=== PATIENT | female | born 2000 | race Caucasian/White ===

== ENCOUNTER 2024-05-05 10:00 | Outpatient (CLI) | payer OTHER ==
[2024-05-05 10:55] VITALS: BP 99/64
[2024-05-05] MEDS ORDERED: ATABEX DHA 200200 MG PO (11:43)
[2024-05-05] MEDS ORDERED: PEPCID AC20 MG PO (11:43)
[2024-05-05 13:20] LABS: URINE APPEARANCE Clear; URINE BILIRRUBIN Negative (NEGATIVE); URINE BLOOD Negative; URINE COLOR Yellow; URINE GLUCOSE Negative (NEGATIVE); URINE KETONE Negative (NEGATIVE); URINE LEUKOCYTE Small; URINE NITRATE Negative; URINE PROTEIN Negative (NEGATIVE); URINE UROBILINOGEN 0.2 E.U./dl
[2024-05-05 13:22] LABS: URINE BACTERIA 609.8 uL (0.0-1933); URINE RBC 2.4 uL (0.0-20.8); URINE WBC 18.7 uL (0.0-23.2)
[2024-05-05 13:24] LABS: URINE CAST 0.15 uL (0.0-1.40)
[2024-05-05 15:14] VITALS: BP 99/63
[2024-05-05] MEDS ORDERED: BETAMETHASONE ACETATE,SOD PHOS 30 MG/5 ML ML IM SCH (16:00)
[2024-05-05] MEDS ORDERED: VANCOMYCIN HCL 1,000 MG VIAL IV SCH (16:00)
[2024-05-05 19:31] VITALS: BP 11/63
[2024-05-06 00:51] VITALS: BP 101/64
[2024-05-06] MEDS ORDERED: FAMOTIDINE/PF 20 MG/2 ML VIAL IV PRN ×2 (04:30→06:30)
[2024-05-06 04:43] VITALS: BP 101/58
[2024-05-06 06:20] VITALS: BP 99/58; O2SAT 96
[2024-05-06 10:48] VITALS: BP 101/62
[2024-05-06 13:17] VITALS: BP 125/70
== END 2024-05-06 14:15 | disposition home or self-care (01) ==
LOC: OBS/DEL 10:00
PROVIDERS: ATTEND General Practice
DX: O26.893 Other specified pregnancy related conditions, third trimester (principal); O26.849 Uterine size-date discrepancy, unspecified trimester; O36.8199 Decreased fetal movements, unspecified trimester, other fetus; Z3A.34 34 weeks gestation of pregnancy; R10.2 Pelvic and perineal pain

== ENCOUNTER 2024-05-27 04:50 | Inpatient (IN) | payer OTHER ==
[2024-05-27] VITALS (10 sets, daily range): BP systolic 100–124; BP diastolic 56–77
[~2024-05-27] VITALS: Ht 160 cm; Wt 108.9 kg
[~2024-05-27 04:50] MED LIST: ATABEX DHA 200200 MG PO; PEPCID AC20 MG PO
[2024-05-27] MEDS ORDERED: PRENATABS RX T1 EACH PO (04:55)
[2024-05-27] MEDS ORDERED: RINGERS SOLUTION,LACTATED 1,000 ML IV SCH (05:00)
[2024-05-27] MEDS ORDERED: VANCOMYCIN HCL 1,000 MG VIAL IV ONE (05:00)
[2024-05-27 06:00] LABS: HEMATOCRIT 37.8 % (36.0-45.00); HEMOGLOBIN 12.6 g/dL (12.0-15.00); MEAN CELL VOLUME 88.7 fL (80.00-100.00); MEAN CORPUSCULAR HEMOGLOBIN 29.6 pg (27.00-32.0); MEAN CORPUSCULAR HGB CONC 33.3 g/dl (32.0-36.0); PLATELET COUNT 248 K/uL (150-450); RED BLOOD COUNT 4.26 M/uL (4.00-6.00); RED CELL DISTRIBUTION WIDTH 14.6 % (11.5-14.5)
[2024-05-27 06:35] LABS: INR 0.98; PROTHROMBIN TIME 10.7 SECONDS (9.0-11.5)
[2024-05-27 06:48] LABS: ALBUMIN 2.6 gm/dL (3.4-5.0); BILIRUBIN TOTAL 0.37 mg/dL (0.3-1.2); CALCIUM 8.5 mg/dL (8.5-10.1); CREATININE SERUM 0.52 mg/dL (0.55-1.02); GFR 144.87; GLOBULINA 3.7 G/DL (2.4-3.5); TOTAL PROTEIN 6.3 gm/dL (6.4-8.2)
[2024-05-27] MEDS ORDERED: ACETAMINOPHEN 500 MG GEL..CAP PO PRN (07:30)
[2024-05-27] MEDS ORDERED: OXYTOCIN 1,000 ML IV SCH (07:30)
[2024-05-27] MEDS ORDERED: CHLORHEXIDINE GLUCONATE 120 ML BOTTLE TP SCH (07:30)
[2024-05-27] MEDS ORDERED: IBUprofen 600 MG TABLET PO PRN (07:45)
[2024-05-27] MEDS ORDERED: PNV,CALCIUM 72/IRON/FOLIC ACID 1 TAB TABLET PO SCH (09:00)
[2024-05-27 13:40] LABS: HEMATOCRIT 37.4 % (36.0-45.00); HEMOGLOBIN 12.5 g/dL (12.0-15.00); MEAN CELL VOLUME 87.1 fL (80.00-100.00); MEAN CORPUSCULAR HEMOGLOBIN 29.1 pg (27.00-32.0); MEAN CORPUSCULAR HGB CONC 33.4 g/dl (32.0-36.0); PLATELET COUNT 268 K/uL (150-450)
[2024-05-27] MEDS ORDERED: VANCOMYCIN HCL 1,000 MG VIAL IV SCH (17:00)
[2024-05-27] MEDS ORDERED: FAMOtidine 20 MG TABLET PO SCH (17:00)
[2024-05-28] VITALS: BP 127/68
[2024-05-28 07:46] VITALS: BP 100/69
[2024-05-28 16:03] VITALS: BP 100/60
[2024-05-29] VITALS: BP 118/78
[2024-05-29 08:37] VITALS: BP 139/94
== END 2024-05-29 13:16 | disposition home or self-care (01) | DRG 807 ==
LOC: OB/GYN 04:50 → LDR 04:50 → OB/GYN 07:53
PROVIDERS: ADMIT General Practice; ATTEND General Practice
PROC: 10E0XZZ Delivery of Products of Conception, External Approach (ICD-10-PCS; principal; 2024-05-27)
PROC: 0UQMXZZ Repair Vulva, External Approach (ICD-10-PCS; 2024-05-27)
PROC: 3E033VJ Introduction of Other Hormone into Peripheral Vein, Percutaneous Approach (ICD-10-PCS; 2024-05-27)
PROC: 4A1HXCZ Monitoring of Products of Conception, Cardiac Rate, External Approach (ICD-10-PCS; 2024-05-27)
DX: O71.82 Other specified trauma to perineum and vulva (principal); Z37.0 Single live birth; O99.824 Streptococcus B carrier state complicating childbirth; Z3A.38 38 weeks gestation of pregnancy

== ENCOUNTER 2025-03-02 09:05 | Outpatient (CLI) | payer OTHER ==
[~2025-03-02 09:05] MED LIST changes: +PRENATABS RX T1 EACH PO
== END 2025-03-02 09:07 | disposition home or self-care (01) ==
LOC: PRENATAL 09:05
PROVIDERS: ATTEND Obstetrics & Gynecology Maternal & Fetal Medicine
DX: O36.80X0 Pregnancy with inconclusive fetal viability, not applicable or unspecified (principal); Z36.82 Encounter for antenatal screening for nuchal translucency; Z14.8 Genetic carrier of other disease; Z3A.12 12 weeks gestation of pregnancy

== ENCOUNTER → 2025-04-24 | Outpatient (CLI) | payer OTHER | END | disposition home or self-care (01) | LOC: PRENATAL 07:42 | PROVIDERS: ATTEND Obstetrics & Gynecology Maternal & Fetal Medicine | DX: O44.02 Complete placenta previa NOS or without hemorrhage, second trimester (principal); O99.213 Obesity complicating pregnancy, third trimester; Z3A.19 19 weeks gestation of pregnancy ==